=== PATIENT | female | born 1995 | race Hispanic/Latino ===

== ENCOUNTER 2017-04-25 16:02 | Emergency (ER) | payer MEDICAID ==
[2017-04-25 16:02] VITALS: BMI 24.0
[2017-04-25 16:35] VITALS: BP 98/65; PULSE 89; RESP 19; TEMP 98.1; O2SAT 96
--- NOTE | 2017-04-25 17:05 | CT ---
PROCEDURE: CT HEAD WITHOUT CONTRAST. HISTORY: headache/head injury COMPARISON: None available. TECHNIQUE: Axial computed tomography images were obtained through the head/brain without intravenous contrast. Radiation dose: Total exam DLP = 725.84 mGy-cm. This CT exam was performed using one or more of the following dose reduction techniques: Automated exposure control, adjustment of the mA and/or kV according to patient size, and/or use of iterative reconstruction technique. FINDINGS: HEMORRHAGE: No intracranial hemorrhage. BRAIN: No mass effect or edema. No atrophy or chronic microvascular ischemic changes. VENTRICLES: No hydrocephalus. CALVARIUM: Unremarkable. PARANASAL SINUSES: Complete opacification of the left maxillary sinus. Partial opacification of the left frontal sinus and mucosal thickening of the anterior left ethmoid air cells. MASTOID AIR CELLS: Unremarkable as visualized. No inflammatory changes. OTHER FINDINGS: None. IMPRESSION: No acute intracranial pathology identified. Complete opacification of the left maxillary sinus. Partial opacification of the left frontal sinus and mucosal thickening of the anterior left ethmoid air cells. Correlate clinically for sinusitis.
[2017-04-25] MEDS ORDERED: Amoxicillin-Clav 875-125 mg Tab PO STA (17:20)
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
== END 2017-04-25 17:45 | disposition home or self-care (01) ==
LOC: ED 16:02
DX: S09.90XA Unspecified injury of head, initial encounter (principal); W50.0XXA Accidental hit or strike by another person, initial encounter; Y93.89 Activity, other specified; Y92.89 Other specified places as the place of occurrence of the external cause; R51 Headache; J32.9 Chronic sinusitis, unspecified; F17.210 Nicotine dependence, cigarettes, uncomplicated

== ENCOUNTER 2017-12-30 15:11 | Emergency (ER) | payer MEDICAID ==
[2017-12-30 15:11] VITALS: BMI 24.0
--- NOTE | 2017-12-30 15:22 | ED PDOC ---
Arrival/HPI - General Time Seen by Provider: 12/30/17 15:21 Historian: Patient - History of Present Illness Narrative History of Present Illness (Text): 12/30/17 15:21 22 y/o female, no significant pmh, nkda, c/o epigastric abdominal on and off x 2 weeks. Pt. stated that she has burning pain, associated with nausea with these episodes, no night sweat, no palpitation, no chest pain, no numbness or tingling, no other medical or psychological complaints. Past Medical History - Provider Review Nursing Documentation Reviewed: Yes - Infectious Disease Hx of Infectious Diseases: None - Psychiatric Hx Substance Use: No - Anesthesia Hx Anesthesia: No Family/Social History - Physician Review Nursing Documentation Reviewed: Yes Family/Social History: Unknown Family HX Smoking Status: Never Smoked Hx Alcohol Use: No Hx Substance Use: No Allergies/Home Meds Allergies/Adverse Reactions: Allergies No Known Allergies Allergy (Verified 12/30/17 15:30) Home Medications: Home Meds Medication Instructions Recorded Confirmed No Known Home Med 12/30/17 12/30/17 Review of Systems - Review of Systems Constitutional: absent: Fatigue, Fevers Eyes: absent: Vision Changes ENT: absent: Hearing Changes Respiratory: absent: SOB, Cough Cardiovascular: absent: Chest Pain Gastrointestinal: Abdominal Pain, Nausea. absent: Diarrhea, Vomiting Skin: absent: Rash, Pruritis Psychiatric: absent: Anxiety, Depression Physical Exam Vital Signs Temp Pulse Resp BP Pulse Ox 12/30/17 15:40 98.2 F 86 18 135/76 100 - Systems Exam Head: Present: Atraumatic, Normocephalic Pupils: Present: PERRL Extroacular Muscles: Present: EOMI Conjunctiva: Present: Normal Mouth: Present: Moist Mucous Membranes Neck: Present: Normal Range of Motion Respiratory/Chest: Present: Clear to Auscultation, Good Air Exchange. No: Respiratory Distress, Accessory Muscle Use Cardiovascular: Present: Regular Rate and Rhythm, Normal S1, S2. No: Murmurs Abdomen: Present: Tenderness (+epigastric tenderness), Other (negative ferrell sign). No: Distention, Peritoneal Signs, Rebound, Guarding Back: Present: Normal Inspection Upper Extremity: Present: Normal Inspection. No: Cyanosis, Edema Lower Extremity: Present: Normal Inspection. No: Edema Neurological: Present: GCS=15, CN II-XII Intact, Speech Normal, Motor Func Grossly Intact, Gait Normal, Memory Normal Skin: Present: Warm, Dry, Normal Color. No: Rashes Psychiatric: Present: Alert, Oriented x 3, Normal Insight, Normal Concentration Medical Decision Making ED Course and Treatment: 12/30/17 15:31 -labs/ua -IVF/pepcid/reglan -Observe and reassess 12/30/17 15:54 -Urine hcg is negative. -Pt. wants to go, declined lab works and declined care, refused prescription and discharge, left the ER without waiting for me, will place as elopement. - Medication Orders Current Medication Orders: Sodium Chloride (Sodium Chloride 0.9%) 1,000 mls @ 999 mls/hr IV .Q1H1M STA Stop: 12/30/17 16:32 Last Admin: 12/30/17 15:42 Dose: 999 mls/hr eMAR Start Stop Document 12/30/17 15:42 LM (Rec: 12/30/17 15:42 [id number] Intravenous Solution Start Date 12/30/17 Start Time 15:42 End Date 12/30/17 End time 16:45 Total Infusion Time 63 Discontinued Medications Famotidine (Pepcid 20mg/50ml Premix) 20 mg IVPB STAT STA Stop: 12/30/17 15:33 Last Admin: 12/30/17 15:41 Dose: 20 mg eMAR Start Stop Document 12/30/17 15:41 LM (Rec: 12/30/17 15:42 [facility] [id number]) Intravenous Solution Start Date 12/30/17 Start Time 15:41 End Date 12/30/17 End time 16:05 Total Infusion Time 24 Metoclopramide HCl (Reglan) 10 mg IVP STAT STA Stop: 12/30/17 15:33 Last Admin: 12/30/17 15:42 Dose: 10 mg IVP Administration Document 12/30/17 15:42 LM (Rec: 12/30/17 15:42 [facility] [id number]) Charges for Administration # of IVP Administrations 1 - 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 Disposition/Present on Arrival - Present on Arrival Any Indicators Present on Arrival: No History of DVT/PE: No History of Uncontrolled Diabetes: No Urinary Catheter: No History of Decub. Ulcer: No History Surgical Site Infection Following: None - Disposition Have Diagnosis and Disposition been Completed?: Yes Diagnosis: Non-compliance Disposition: ELOPEMENT - ER ONLY Disposition Time: 15:31 Condition: GOOD
[2017-12-30] MEDS ORDERED: Sodium Chloride 0.9% 1,000 ML IV STA (15:32)
[2017-12-30] MEDS ORDERED: Famotidine 20mg/50ml Premix IVPB STA (15:32)
[2017-12-30 15:45] VITALS: BP 135/76; PULSE 86; RESP 18; TEMP 98.2; O2SAT 100
== END 2017-12-30 16:32 | disposition left against medical advice (07) ==
LOC: ED 15:11
DX: Z91.19 Patient's noncompliance with other medical treatment and regimen (principal)
CPT/HCPCS: 96361; 96365; 96375; 99283; J2765; J7040

== ENCOUNTER 2018-06-05 18:56 | Emergency (ER) | payer MEDICAID ==
[2018-06-05 19:22] VITALS: RESP 18; O2SAT 98; BMI 26.6
[2018-06-05] MEDS ORDERED: Amoxicillin-Clav 875-125 mg Tab PO STA (19:42)
--- NOTE | 2018-06-05 19:52 | ED PDOC ---
Arrival/HPI - General Historian: Patient - History of Present Illness Narrative History of Present Illness (Text): 06/05/18 19:43 22yr old female presents today with 2 day history of sore throat and a 1 week history of dental pain/Gingival pain. pt states she was seen by PMD and given magic mouthwash for "mouth ulcers" and cipro for "ear infection". pt states ulcers in mouth have improved pt states over the past 2 days she has been having burning sensation. pt states she is able to swallow solids and liquids, but has dental pain when chewing. pt states no medications have been taken for pain at home. denies fever/chills. no cough. no other complaints. Time/Duration: 1 week Symptom Onset: Gradual <Liseth Varghese - Last Filed: 06/06/18 01:28> <Riki Almaguer - Last Filed: 06/06/18 05:59> - General Chief Complaint: ENT Problem Time Seen by Provider: 06/05/18 19:42 Past Medical History - Provider Review Nursing Documentation Reviewed: Yes - Travel History Have you recently traveled outside [place] w/in the past 3 mons?: No - Infectious Disease Hx of Infectious Diseases: None - Pulmonary Hx Asthma: Yes - Psychiatric Hx Substance Use: No - Anesthesia Hx Anesthesia: No <Liseth Varghese - Last Filed: 06/06/18 01:28> Family/Social History - Physician Review Nursing Documentation Reviewed: Yes Family/Social History: Unknown Family HX Smoking Status: Never Smoked Hx Alcohol Use: No Hx Substance Use: No <Liseth Varghese - Last Filed: 06/06/18 01:28> Allergies/Home Meds <Liseth Varghese - Last Filed: 06/06/18 01:28> <Riki Almaguer - Last Filed: 06/06/18 05:59> Allergies/Adverse Reactions: Allergies No Known Allergies Allergy (Verified 06/05/18 19:25) Review of Systems - Review of Systems Constitutional: absent: Fatigue, Fevers ENT: Sore Throat. absent: Sinus Congestion Respiratory: absent: SOB, Cough Cardiovascular: absent: Chest Pain, Palpitations Gastrointestinal: absent: Abdominal Pain, Nausea, Vomiting Genitourinary Female: absent: Dysuria, Frequency Musculoskeletal: absent: Arthralgias, Back Pain, Neck Pain Skin: absent: Rash Neurological: absent: Headache, Dizziness Psychiatric: absent: Anxiety, Depression, Suicidal Ideation <Liseth Varghese - Last Filed: 06/06/18 01:28> Physical Exam Vital Signs Reviewed: Yes Vital Signs Temp Pulse Resp BP Pulse Ox 06/05/18 19:17 99.4 F 100 H 18 114/70 98 Temperature: Afebrile Blood Pressure: Normal Pulse: Tachycardic Respiratory Rate: Normal Appearance: Positive for: Well-Appearing, Non-Toxic, Comfortable Pain Distress: None Mental Status: Positive for: Alert and Oriented X 3 - Systems Exam Head: Present: Atraumatic Ears: Present: Normal, NORMAL TM Mouth: Present: Moist Mucous Membranes, Normal Lips, Normal Tounge, Other (+ gingival edema and erythema noted to upper gingiva. no abscess). No: Drooling, Trismus Pharnyx: Present: ERYTHEMA. No: EXUDATE, TONSILS ENLARGED Nose (External): Present: Atraumatic Nose (Internal): Present: Normal Inspection Neck: Present: Normal Range of Motion, Trachea Midline. No: Lymphadenopathy Respiratory/Chest: Present: Clear to Auscultation, Good Air Exchange. No: Respiratory Distress, Accessory Muscle Use Cardiovascular: Present: Regular Rate and Rhythm, Normal S1, S2. No: Murmurs Neurological: Present: GCS=15, Speech Normal Skin: Present: Warm, Dry, Normal Color. No: Rashes Psychiatric: Present: Alert, Oriented x 3 <Liseth Varghese - Last Filed: 06/06/18 01:28> Vital Signs Temp Pulse Resp BP Pulse Ox 06/05/18 20:40 98.2 F 88 18 127/61 98 06/05/18 19:17 99.4 F 100 H 18 114/70 98 <Riki Almaguer - Last Filed: 06/06/18 05:59> Medical Decision Making ED Course and Treatment: 06/05/18 19:54 Patient is nontoxic well appearing in no distress. Vital signs are stable Tolerating p.o. fluids and solids Patient with dental pain, gingival erythema and edema and pharyngitis will treat with Augmentin and Motrin for pain. Motrin 600 mg p.o. Augmentin by mouth Patient reassessment: Patient feeling better after medications, vital signs stable. Moist mucous membranes. I advised follow up with primary care physician ENT specialist and dentist within the next 2 days, advised to increase fluids take medications as prescribed and return if symptoms worsen persist or if new symptoms develop Patient verbalizes understanding of discharge instructions and need for immediate followup. all aspects of this case were discussed the attending of record. IMPRESSION; pharyngitis, gingivitis Motrin every 6 hours as needed for pain/fever reduction Increase fluids Augmentin twice daily times daily x10 days Follow up primary care physician within the next 2 days Follow-up with the ENT specialist within the next 2 days Follow-up with the dentist within the next 2 days Continue Magic mouthwash as prescribed Stop using Cipro. Saltwater gargles, throat lozenges Return if symptoms worsen persist or if new symptoms develop - Medication Orders Current Medication Orders: Amoxicillin/Clavulanate Potassium (Augmentin 875 Mg-125 Mg Tab) 1 tab PO STAT STA; Protocol Stop: 06/05/18 19:43 Ibuprofen (Motrin Tab) 600 mg PO STAT STA Stop: 06/05/18 19:43 <Liseth Varghese - Last Filed: 06/06/18 01:28> - Medication Orders Current Medication Orders: Discontinued Medications Amoxicillin/Clavulanate Potassium (Augmentin 875 Mg-125 Mg Tab) 1 tab PO STAT STA; Protocol Stop: 06/05/18 19:43 Last Admin: 06/05/18 19:58 Dose: 1 tab Ibuprofen (Motrin Tab) 600 mg PO STAT STA Stop: 06/05/18 19:43 Last Admin: 06/05/18 19:57 Dose: 600 mg MAR Pain/Vitals Document 06/05/18 19:57 [place] (Rec: 06/05/18 19:58 LA [id number]) Pain Reassessment Is This A Pain ReAssessment? No Sleep Is patient sleeping during reassessment? 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 <Riki Almaguer - Last Filed: 06/06/18 05:59> Disposition/Present on Arrival - Present on Arrival Any Indicators Present on Arrival: No History of DVT/PE: No History of Uncontrolled Diabetes: No Urinary Catheter: No History of Decub. Ulcer: No History Surgical Site Infection Following: None - Disposition Have Diagnosis and Disposition been Completed?: Yes Disposition Time: 19:56 Patient Plan: Discharge <Liseth Varghese - Last Filed: 06/06/18 01:28> <Riki Almaguer - Last Filed: 06/06/18 05:59> - Disposition Diagnosis: Pharyngitis, Gingivitis Disposition: HOME/ ROUTINE Condition: GOOD Discharge Instructions (ExitCare): Sore Throat, Adult (DC), Periodontal Disease Additional Instructions: Motrin every 6 hours as needed for pain/fever reduction Increase fluids Augmentin twice daily times daily x10 days Follow up primary care physician within the next 2 days Follow-up with the ENT specialist within the next 2 days Follow-up with the dentist within the next 2 days Continue Magic mouthwash as prescribed Stop using Cipro. Saltwater gargles, throat lozenges Return if symptoms worsen persist or if new symptoms develop Prescriptions: Amoxicillin/Clavulanate [Augmentin 875 MG-125 MG] 1 tab PO BID #20 tab Ibuprofen [Motrin] 600 mg PO Q6H PRN #20 tab PRN Reason: pain/fever reduction Referrals: Elizabet Rojas MD [Primary Care Provider] - Follow up with primary Ino Luevano DO [Doctor Osteopathy] - Follow up with primary Bruce Ta DMD [Non-Staff] - Follow up with primary Truong Wolf DMD [Staff Provider] - Follow up with primary Forms: [facility] (Serbian), WORK NOTE
[2018-06-05 20:40] VITALS: BP 127/61; PULSE 88; TEMP 98.2
== END 2018-06-05 20:51 | disposition home or self-care (01) ==
LOC: ED 18:56
DX: J02.9 Acute pharyngitis, unspecified (principal); K05.10 Chronic gingivitis, plaque induced

== ENCOUNTER 2018-10-17 16:04 | Emergency (ER) | payer MEDICAID ==
[2018-10-17 16:29] VITALS: BMI 26.1
[2018-10-17 16:31] VITALS: BP 115/67; PULSE 75; RESP 18; TEMP 97.7; O2SAT 96
--- NOTE | 2018-10-17 16:52 | ED PDOC ---
Arrival/HPI - General Chief Complaint: Eye Problem Historian: Patient - History of Present Illness Narrative History of Present Illness (Text): 10/17/18 16:40 22 y/o female, no significant pmh, nkda, c/o had an episode of rt. upper eyelid pain yesterday. Pt. stated that she was at home, had rt. upper eyelid pain, pain resolved today, would like to be evaluation, no eye surgery, no change in vision, no numbness or tingling, no palpitation, no other medical or psychological complaints. Past Medical History - Provider Review Nursing Documentation Reviewed: Yes - Infectious Disease Hx of Infectious Diseases: None - Cardiac Hx Cardiac Disorders: No - Pulmonary Hx Respiratory Disorders: Yes Hx Asthma: Yes - Neurological Hx Neurological Disorder: No - HEENT Hx HEENT Disorder: No - Renal Hx Renal Disorder: No - Endocrine/Metabolic Hx Endocrine Disorders: No - Hematological/Oncological Hx Blood Disorders: No - Integumentary Hx Dermatological Disorder: No - Musculoskeletal/Rheumatological Hx Musculoskeletal Disorders: No - Gastrointestinal Hx Gastrointestinal Disorders: No - Genitourinary/Gynecological Hx Genitourinary Disorders: No - Psychiatric Hx Psychophysiologic Disorder: No Hx Substance Use: No - Anesthesia Hx Anesthesia: No Family/Social History - Physician Review Nursing Documentation Reviewed: Yes Family/Social History: Unknown Family HX Smoking Status: Never Smoked Hx Alcohol Use: No Hx Substance Use: No Allergies/Home Meds Allergies/Adverse Reactions: Allergies No Known Allergies Allergy (Verified 10/17/18 16:29) Home Medications: Home Meds Medication Instructions Recorded Confirmed No Known Home Med 10/17/18 10/17/18 Review of Systems - Review of Systems Constitutional: absent: Fatigue, Fevers Eyes: absent: Vision Changes ENT: absent: Hearing Changes Respiratory: absent: SOB, Cough Cardiovascular: absent: Chest Pain Gastrointestinal: absent: Abdominal Pain, Diarrhea, Nausea, Vomiting, Food Intolerance Skin: absent: Rash, Pruritis Neurological: absent: Headache, Dizziness Psychiatric: absent: Anxiety, Depression, Suicidal Ideation Physical Exam Vital Signs Reviewed: Yes Vital Signs Temp Pulse Resp BP Pulse Ox 10/17/18 16:30 97.7 F 75 18 115/67 96 Temperature: Afebrile Blood Pressure: Normal Pulse: Regular Respiratory Rate: Normal Appearance: Positive for: Well-Appearing, Non-Toxic, Comfortable Pain Distress: None Mental Status: Positive for: Alert and Oriented X 3 - Systems Exam Head: Present: Atraumatic, Normocephalic Pupils: Present: PERRL, Other (Eyes: bilateral vision with correction glasses 20/20, rt. eye vision with correction 20/20 vs. lt. eye vision with correction 20/20, rt. eye examined with fluorsein strip show no uptake and no corneal laceratin/abrasion/dendritic signs, bilateral upper and lower eyelids examined with no styes and no conjunctivitis, no periorbital swelling, FREOM without limitation or pain. ) Extroacular Muscles: Present: EOMI Conjunctiva: Present: Normal Ears: Present: NORMAL TM, Normal Canal. No: Erythema Mouth: Present: Moist Mucous Membranes Neck: Present: Normal Range of Motion Respiratory/Chest: Present: Clear to Auscultation, Good Air Exchange. No: Respiratory Distress, Accessory Muscle Use Cardiovascular: Present: Regular Rate and Rhythm, Normal S1, S2. No: Murmurs Abdomen: No: Tenderness, Distention, Peritoneal Signs Back: Present: Normal Inspection Upper Extremity: Present: Normal Inspection. No: Cyanosis, Edema Lower Extremity: Present: Normal Inspection. No: Edema Neurological: Present: GCS=15, CN II-XII Intact, Speech Normal, Motor Func Grossly Intact, Normal Cerebellar Funct, Gait Normal, Memory Normal Skin: Present: Warm, Dry, Normal Color. No: Rashes Psychiatric: Present: Alert, Oriented x 3, Normal Insight, Normal Concentration Medical Decision Making ED Course and Treatment: 10/17/18 16:59 -Urine hcg is negative -Pt. is asymptomatic, no pain now, no discomfort, smiling, will discharge home. -Discharge home with education on follow up with opthalmologist within 2 days, return to the ER for any new or worsening signs or symptoms. 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 Disposition/Present on Arrival - Present on Arrival Any Indicators Present on Arrival: No History of DVT/PE: No History of Uncontrolled Diabetes: No Urinary Catheter: No History of Decub. Ulcer: No History Surgical Site Infection Following: None - Disposition Have Diagnosis and Disposition been Completed?: Yes Diagnosis: Eye exam, routine Disposition: HOME/ ROUTINE Disposition Time: 17:00 Patient Plan: Discharge Condition: GOOD Additional Instructions: -Discharge home with education on follow up with opthalmologist within 2 days, return to the ER for any new or worsening signs or symptoms. Referrals: Munir Oviedo [Staff Provider] - Follow up with primary Forms: [employer] ([place]z), WORK NOTE
== END 2018-10-17 17:42 | disposition home or self-care (01) ==
LOC: ED 16:04
DX: Z04.89 Encounter for examination and observation for other specified reasons (principal)